=== PATIENT | male | born 1965 ===

== ENCOUNTER 2017-09-18 21:12 | Emergency (ER) | payer SELFPAY ==
[~2017-09-18] VITALS: Ht 198.1 cm; Wt 95.2 kg
[2017-09-18 21:22] VITALS: Ht 198.1 cm; Wt 95.2 kg
[2017-09-18 22:13] LABS: BASOPHIL % 0.8 % (0-2); PLATELET COUNT 244 x10^3mcL (130-400); RED CELL DISTRIBUTION WIDTH 12.9 % (11.5-14.5)
[2017-09-18 22:22] LABS: CALCIUM 8.2 mg/dL (8.5-10.1); CARBON DIOXIDE 26.2 mmol/L (21-32); CHLORIDE SERUM 106 mmol/L (98-107); GFR1 > 60 mL/min; GLUCOSE SERUM 102 mg/dL (74-106); POTASSIUM SERUM 4.4 mmol/L (3.5-5.1); SODIUM SERUM 142 mmol/L (136-145)
[2017-09-19 07:00] VITALS: BP 120/80
== END 2017-09-19 07:00 | disposition home or self-care (01) ==
LOC: ED 21:12
PROVIDERS: Emergency Medicine
DX: F10.129 Alcohol abuse with intoxication, unspecified (principal); F19.10 Other psychoactive substance abuse, uncomplicated; I10 Essential (primary) hypertension; E78.00 Pure hypercholesterolemia, unspecified
CPT/HCPCS: J3411; J3490